=== PATIENT | male | born 1965 | race Caucasian/White ===

== ENCOUNTER 2021-10-16 09:07 | Inpatient (IN) | payer OTHER ==
[~2021-10-16] VITALS: Ht 175.3 cm; Wt 68.0 kg
--- NOTE | 2021-10-16 09:37 | NUR ---
SE RECIBE MASCULINO DE 56 ANOS ALERTA Y ORIENTADO X3 EN COMPANIA DE FAMILIAR. PTE REFIERE TENER DOLOR ABDOMINAL HACE UN MES Y REFIERE HX DE CANCER. SE REALIZA PATSY DE S/V Y SE COLOCA EN GUSTABO EN ESPERA DE SER EVALUADO POR EL MEDICO.
--- NOTE | 2021-10-16 10:36 | NUR ---
PACIENTE EVALUADO POR EL QUIEN ORDENA TRATAMIENTO MEDICO.SE ORIENTA PACIENTE SOBRE EL MISMO MALINA REFIERE ENTENDER. SE REALIZAN MUESTRAS BAJO MEDIDAS ASEPTICAS Y SE ADMINISTRAN MEDICAMENTOS JANE ORDEN.SE HACE ENTREGA DE ENVASE PARA U/A
[2021-10-23] MEDS ORDERED: ULTRACET PO (11:04)
[2021-10-23] MEDS ORDERED: INTESTINEX680 M1 PO (11:05)
== END 2021-10-23 14:22 | disposition home or self-care (01) | DRG 330 ==
LOC: ER 09:07 → SEC-K 19:16 → SURG 19:16
PROVIDERS: ADMIT Surgery; ATTEND Surgery
PROC: B24BZZZ Ultrasonography of Heart with Aorta (ICD-10-PCS; 2021-10-16)
PROC: 0DBK8ZX Excision of Ascending Colon, Via Natural or Artificial Opening Endoscopic, Diagnostic (ICD-10-PCS; 2021-10-18)
PROC: 30233N1 Transfusion of Nonautologous Red Blood Cells into Peripheral Vein, Percutaneous Approach (ICD-10-PCS; 2021-10-18)
PROC: BW21YZZ Computerized Tomography (CT Scan) of Abdomen and Pelvis using Other Contrast (ICD-10-PCS; 2021-10-19)
PROC: 07BB4ZZ Excision of Mesenteric Lymphatic, Percutaneous Endoscopic Approach (ICD-10-PCS; 2021-10-20)
PROC: 0DTF4ZZ Resection of Right Large Intestine, Percutaneous Endoscopic Approach (ICD-10-PCS; principal; 2021-10-20 14:00)
DX: C18.2 Malignant neoplasm of ascending colon (principal); C78.7 Secondary malignant neoplasm of liver and intrahepatic bile duct; C78.5 Secondary malignant neoplasm of large intestine and rectum; D12.1 Benign neoplasm of appendix; D63.0 Anemia in neoplastic disease; R19.00 Intra-abdominal and pelvic swelling, mass and lump, unspecified site; Z20.822 Contact with and (suspected) exposure to COVID-19

== ENCOUNTER 2021-11-07 08:52 | Outpatient (CLI) | payer OTHER ==
[~2021-11-07 08:52] MED LIST: INTESTINEX680 M1 PO; ULTRACET PO
== END 2021-11-07 08:53 | disposition home or self-care (01) ==
LOC: LAB 08:52
PROVIDERS: ATTEND Surgery
DX: C18.2 Malignant neoplasm of ascending colon (principal); C78.7 Secondary malignant neoplasm of liver and intrahepatic bile duct

== ENCOUNTER 2021-11-13 05:55 | Day surgery (SDC) | payer OTHER ==
[~2021-11-13] VITALS: Ht 175.3 cm; Wt 68.0 kg
[2021-11-13] MEDS ORDERED: ULTRACET PO (10:36)
== END 2021-11-13 13:55 | disposition home or self-care (01) ==
LOC: CIR.AMB 05:55
PROVIDERS: ATTEND Surgery
DX: C18.2 Malignant neoplasm of ascending colon (principal); Z20.822 Contact with and (suspected) exposure to COVID-19; Z86.16 Personal history of COVID-19; Z87.891 Personal history of nicotine dependence

== ENCOUNTER 2024-01-19 11:01 | Inpatient (IN) | payer OTHER ==
[~2024-01-19] VITALS: Ht 175.3 cm; Wt 68.0 kg
--- NOTE | 2024-01-19 11:47 | NUR ---
PTE ALERTA Y ORIENTADO X3 QUIEN REFIERE VENIR YA QUE LE MISMO PRESENTA INFECCION EN EL MEDPORT. EMERY INDICO A PTE PASAR POR ER
[2024-01-19] MEDS ORDERED: VALSARTAN80 MG PO (11:48)
--- NOTE | 2024-01-19 13:04 | NUR ---
[email or web address] ORIENTA A PTE SOBRE TX MEDICO ORDENADO POR . REALIZA PATSY DE MUESTRAS DE LAB JANE ORDEN MEDICA Y BAJO MEDIDAS ASEPRICAS. PTE PENDIENTE A ESTUDIO.
[2024-01-19 13:43] LABS: HEMATOCRIT 43.1 % (39.0-48.0); HEMOGLOBIN 14.6 g/dL (13-16.00); MEAN CELL VOLUME 106.1 fL (80.0-100.00); PLATELET COUNT 231 K/uL (150-450); RED BLOOD COUNT 4.06 M/uL (4.00-6.00); RED CELL DISTRIBUTION WIDTH 15.3 % (11.5-14.5)
[2024-01-19 14:13] LABS: CALCIUM 10.6 mg/dL (8.5-10.1); CREATININE SERUM 1.14 mg/dL (0.70-1.30); GFR 66.21; POTASSIUM 5.02 mEq/L (3.5-5.1)
[2024-01-19] MEDS ORDERED: CEFTRIAXONE SODIUM 1,000 MG VIAL IV STA (14:30)
[2024-01-19 15:26] LABS: PH,URINE 5.5 (5.0-8.0); URINE APPEARANCE Clear; URINE BILIRRUBIN Negative (NEGATIVE); URINE BLOOD Negative; URINE CAST 2.28 uL (0.0-1.40); URINE COLOR Yellow; URINE EPITHELIAL CELLS 1.6 uL (0.0-38.8); URINE GLUCOSE Negative (NEGATIVE); URINE KETONE Trace (NEGATIVE); URINE LEUKOCYTE Negative; URINE NITRATE Negative; URINE PROTEIN Trace (NEGATIVE); URINE RBC 7.9 uL (0.0-20.8); URINE UROBILINOGEN 0.2 E.U./dl; URINE WBC 4.1 uL (0.0-23.2)
[2024-01-19 15:39] LABS: URINE BACTERIA 1.2 uL (0.0-1933); URINE CRYSTALS FEW /HPF
[2024-01-19] MEDS ORDERED: VANCOMYCIN HCL 1,000 MG VIAL IV SCH (18:51)
[2024-01-19] MEDS ORDERED: THIAMINE HCL 100 MG/ML 2 ML VIAL IV SCH (18:53)
[2024-01-19] MEDS ORDERED: CEFEPIME HCL 2,000 MG in 0.9 % SODIUM CHLORIDE 100 ML IV SCH (18:54)
[2024-01-19] MEDS ORDERED: ONDANSETRON HCL 4 MG in 0.9 % SODIUM CHLORIDE 50 ML IV PRN (19:00)
[2024-01-19] MEDS ORDERED: ENALAPRILAT DIHYDRATE 1.25 MG/ML VIAL IV PRN (19:00)
[2024-01-19] MEDS ORDERED: ACETAMINOPHEN 500 MG GEL..CAP PO PRN (19:00)
[2024-01-19] MEDS ORDERED: 0.9 % SODIUM CHLORIDE 1,000 ML IV SCH (19:30)
[2024-01-19] MEDS ORDERED: ENOXAPARIN SODIUM 40 MG/0.4 ML SYRINGE SUBCUTANEO SCH (19:35)
[2024-01-19 22:56] VITALS: BP 130/75
[2024-01-19 23:01] VITALS: BP 130/75; O2SAT 98
[2024-01-19 23:32] LABS: INR < 0.93; PARTIAL THROMBOPLASTIN TIME 28.2 SECONDS (22.0-34.0); PROTHROMBIN TIME 10.2 SECONDS (9.0-11.5)
[2024-01-20 02:02] VITALS: BP 111/64; O2SAT 97
[2024-01-20] MEDS ORDERED: FAMOTIDINE/PF 20 MG in 0.9 % SODIUM CHLORIDE 8 ML IV PUSH SCH (09:00)
[2024-01-20] MEDS ORDERED: OxyCODONE HCL/APAP UD (PERCOCET) PO PRN (16:00)
[2024-01-20] MEDS ORDERED: RINGERS SOLUTION,LACTATED 1,000 ML IV SCH (16:00)
[2024-01-20] MEDS ORDERED: MORPHINE SULFATE 4 MG/ML CARTRIDGE IV PRN (16:00)
[2024-01-20] MEDS ORDERED: ONDANSETRON HCL 2 MG/ML VIAL IV PRN (16:00)
[2024-01-20] MEDS ORDERED: BUPIVACAINE HCL 30 ML VIAL IJ ONE (16:15)
[2024-01-20 18:47] LABS: HEMATOCRIT 41.1 % (39.0-48.0); HEMOGLOBIN 14.1 g/dL (13-16.00); MEAN CELL VOLUME 105.2 fL (80.0-100.00); MEAN CORPUSCULAR HEMOGLOBIN 36.2 pg (27.00-32.0); MEAN CORPUSCULAR HGB CONC 34.4 g/dl (32.0-36.0); PLATELET COUNT 223 K/uL (150-450); RED BLOOD COUNT 3.91 M/uL (4.00-6.00); RED CELL DISTRIBUTION WIDTH 15.6 % (11.5-14.5)
[2024-01-20 19:01] LABS: CALCIUM 8.6 mg/dL (8.5-10.1); CREATININE SERUM 0.85 mg/dL (0.70-1.30); GFR 92.9; MAGNESIUM 2.3 mg/dL (1.8-2.4); PHOSPHOROUS 2.7 mg/dL (2.5-4.9); POTASSIUM 4.64 mEq/L (3.5-5.1)
[2024-01-20] MEDS ORDERED: FAMOTIDINE/PF 20 MG/2 ML VIAL IV PUSH SCH (21:00)
[2024-01-21] VITALS: BP 125/76; O2SAT 97
[2024-01-21 07:01] LABS: HEMATOCRIT 40.2 % (39.0-48.0); HEMOGLOBIN 13.6 g/dL (13-16.00); MEAN CORPUSCULAR HEMOGLOBIN 35.9 pg (27.00-32.0); MEAN CORPUSCULAR HGB CONC 33.9 g/dl (32.0-36.0); PLATELET COUNT 254 K/uL (150-450); RED CELL DISTRIBUTION WIDTH 15.8 % (11.5-14.5)
[2024-01-21 07:32] LABS: ALBUMIN 2.9 gm/dL (3.4-5.0); BILIRUBIN TOTAL 0.22 mg/dL (0.3-1.2); C-REACTIVE PROTEIN 1.21 MG/DL (0.00-0.29); CALCIUM 8.3 mg/dL (8.5-10.1); CREATININE SERUM 0.92 mg/dL (0.70-1.30); GFR 84.8; GLOBULINA 2.9 G/DL (2.4-3.5); MAGNESIUM 2.3 mg/dL (1.8-2.4); PHOSPHOROUS 3.3 mg/dL (2.5-4.9); POTASSIUM 4.74 mEq/L (3.5-5.1); TOTAL PROTEIN 5.8 gm/dL (6.4-8.2)
[2024-01-21 08:00] VITALS: BP 155/83; O2SAT 100
[2024-01-21 16:16] VITALS: BP 143/86; O2SAT 97
[2024-01-21] MEDS ORDERED: ENOXAPARIN SODIUM 40 MG/0.4 ML SYRINGE SUBCUTANEO SCH (17:00)
[2024-01-22 01:16] VITALS: BP 140/83; O2SAT 100
[2024-01-22 08:00] VITALS: BP 114/75; O2SAT 96
[2024-01-22 19:00] VITALS: BP 162/76; O2SAT 99
[2024-01-23 00:52] VITALS: BP 137/82; O2SAT 100
[2024-01-23 08:00] VITALS: BP 190/95; O2SAT 98
[2024-01-23] MEDS ORDERED: PLAVIX75 MG PO (10:17)
[2024-01-23 12:00] VITALS: BP 160/88; O2SAT 98
== END 2024-01-23 14:10 | disposition home or self-care (01) | DRG 315 ==
LOC: ER 11:01 → SURH 20:27 → SEC-K 20:27 → O/R 20:27 → SURH 01-20 16:34
PROVIDERS: General Practice; Internal Medicine Infectious Disease; Surgery; ADMIT Student in an Organized Health Care Education/Training Program; ATTEND Student in an Organized Health Care Education/Training Program
PROC: 0JPV3WZ Removal of Totally Implantable Vascular Access Device from Upper Extremity Subcutaneous Tissue and Fascia, Percutaneous Approach (ICD-10-PCS; principal; 2024-01-20 14:30)
DX: T80.212A Local infection due to central venous catheter, initial encounter (principal); C18.2 Malignant neoplasm of ascending colon; L03.313 Cellulitis of chest wall

== ENCOUNTER 2024-02-24 06:00 | Day surgery (SDC) | payer OTHER ==
[2024-02-22 14:48] VITALS: BP 140/85
[2024-02-22 14:49] VITALS: BP 140/85
[2024-02-22 15:11] LABS: HEMATOCRIT 46.1 % (39.0-48.0); HEMOGLOBIN 16.1 g/dL (13-16.00); MEAN CELL VOLUME 101.1 fL (80.0-100.00); MEAN CORPUSCULAR HEMOGLOBIN 35.3 pg (27.00-32.0); MEAN CORPUSCULAR HGB CONC 34.9 g/dl (32.0-36.0); PLATELET COUNT 230 K/uL (150-450); RED BLOOD COUNT 4.56 M/uL (4.00-6.00); RED CELL DISTRIBUTION WIDTH 14.4 % (11.5-14.5)
[2024-02-22 15:39] LABS: INR 0.98; PARTIAL THROMBOPLASTIN TIME 30.5 SECONDS (22.0-34.0); PROTHROMBIN TIME 10.7 SECONDS (9.0-11.5)
[2024-02-22 15:44] LABS: BILIRUBIN TOTAL 0.7 mg/dL (0.3-1.2); CALCIUM 9.3 mg/dL (8.5-10.1); CREATININE SERUM 0.9 mg/dL (0.70-1.30); GFR 86.98; GLOBULINA 3.7 G/DL (2.4-3.5); POTASSIUM 4.2 mEq/L (3.5-5.1); TOTAL PROTEIN 7.7 gm/dL (6.4-8.2)
[~2024-02-24 06:00] MED LIST changes: +PLAVIX75 MG PO; +VALSARTAN80 MG PO
[2024-02-24] MEDS ORDERED: BACTRIM DS TAB1 EACH PO (10:14)
[2024-02-24] MEDS ORDERED: TRAM1TAB98 PO (10:14)
[2024-02-24] MEDS ORDERED: LIDOCAINE HCL 1% 20 ML VIAL IJ ONE (10:15)
[2024-02-24] MEDS ORDERED: HEPARIN SODIUM,PORCINE 500 UNITS/5 ML VIAL IV ONE (10:15)
[2024-02-24] MEDS ORDERED: CEFAZOLIN SODIUM 1,000 MG VIAL IV ONE (10:15)
[2024-02-24] MEDS ORDERED: BUPIVACAINE HCL 30 ML VIAL IJ ONE (10:15)
== END 2024-02-24 12:30 | disposition home or self-care (01) ==
LOC: CIR.AMB 06:00
PROVIDERS: ATTEND Surgery
DX: C18.2 Malignant neoplasm of ascending colon (principal); C18.3 Malignant neoplasm of hepatic flexure; C78.7 Secondary malignant neoplasm of liver and intrahepatic bile duct; I10 Essential (primary) hypertension
CPT/HCPCS: 36561; C1751